=== PATIENT | female | born 1990 | race Caucasian/White ===

== ENCOUNTER 2017-06-10 00:56 | Inpatient (IN) | payer MEDICAID ==
[~2017-06-10] VITALS: Ht 162.6 cm; Wt 68.2 kg
[2017-06-10 02:51] LABS: RED CELL DISTRIBUTION WIDTH 13.5 % (11.5-14.5)
[2017-06-10 02:55] LABS: CALCIUM 8.9 mg/dL (8.5-10.1); CARBON DIOXIDE 22.8 mmol/L (21-32); CHLORIDE SERUM 102 mmol/L (98-107); CREATININE SERUM 0.7 mg/dL (0.6-1.0); GFR1 > 60 mL/min; GLUCOSE SERUM 87 mg/dL (74-106); PLATELET COUNT 372 x10^3mcL (130-400); POTASSIUM SERUM 3.7 mmol/L (3.5-5.1); SODIUM SERUM 137 mmol/L (136-145)
[2017-06-10 03:00] LABS: ALBUMIN 3.3 g/dL (3.4-5.0); ALKALINE PHOSPHATASE 109 U/L (46-116); ALT/SGPT 22 U/L (14-59); AST/SGOT 17 U/L (15-37); BILIRUBIN TOTAL 0.24 mg/dL (0.20-1.00); TOTAL PROTEIN, SERUM 8.1 g/dL (6.4-8.2)
[2017-06-10 04:00] LABS: BAND NEUTROPHIL 2 % (0-10); MONOCYTE 5 % (0-7); PLATELET MORPHOLOGY LARGE PLATELET SEEN; SEGMENTED NEUTROPHILS 83 % (37-75); rbc morphology (normal/abnorm) NORMAL (NORMAL)
[2017-06-10 04:08] LABS: MAGNESIUM 1.9 mg/dL (1.8-2.4); PHOSPHOROUS 3.4 mg/dL (2.5-4.9)
[2017-06-10 04:09] LABS: CHOLESTEROL/HDL RATIO 2.2
[2017-06-10 04:12] LABS: T3 TOTAL 1.12 ng/mL
[2017-06-10 04:19] VITALS: BP 133/74
[2017-06-10 04:28] LABS: FREE T4 1.42 ng/dL (0.76-1.46); FREE THYROXINE INDEX 3.5 ug/dL (1.4-4.5)
[2017-06-10 05:45] VITALS: BP 116/62
[2017-06-10 08:58] VITALS: BP 108/54
[2017-06-10 13:06] VITALS: BP 103/43
[2017-06-10 13:14] LABS: UA SPECIFIC GRAVITY >=1.030 (1.005-1.035); microscopic required? YES; urine erythrocyte NEGATIVE (NEGATIVE)
[2017-06-10 13:35] LABS: AMPHETAMINE QUAL UR POSITIVE (NEG <=1000)
[2017-06-10 17:04] VITALS: BP 116/68
[2017-06-10 21:12] VITALS: BP 121/64
[2017-06-11 05:53] VITALS: BP 107/60
[2017-06-11 06:23] LABS: PLATELET COUNT 398 x10^3mcL (130-400); RED CELL DISTRIBUTION WIDTH 13.7 % (11.5-14.5)
[2017-06-11 06:25] LABS: CALCIUM 8.8 mg/dL (8.5-10.1); CARBON DIOXIDE 20.3 mmol/L (21-32); CHLORIDE SERUM 106 mmol/L (98-107); CREATININE SERUM 0.7 mg/dL (0.6-1.0); GFR1 > 60 mL/min; GLUCOSE SERUM 182 mg/dL (74-106); POTASSIUM SERUM 4.2 mmol/L (3.5-5.1); SODIUM SERUM 137 mmol/L (136-145)
[2017-06-11 09:13] VITALS: BP 120/60
[2017-06-11 10:45] LABS: BAND NEUTROPHIL 2 % (0-10); BASOPHIL 0 % (0-2); MONOCYTE 1 % (0-7); PLATELET MORPHOLOGY PLATELETS INCREASED; SEGMENTED NEUTROPHILS 97 % (37-75); rbc morphology (normal/abnorm) NORMAL (NORMAL)
[2017-06-11 17:44] VITALS: BP 107/47
[2017-06-11 20:20] VITALS: BP 109/68
[2017-06-12 05:13] VITALS: BP 112/59
[2017-06-12 06:41] LABS: BASOPHIL % 0.5 % (0-2); PLATELET COUNT 361 x10^3mcL (130-400); RED CELL DISTRIBUTION WIDTH 13.4 % (11.5-14.5)
[2017-06-12 06:48] LABS: CALCIUM 8.1 mg/dL (8.5-10.1); CARBON DIOXIDE 22.8 mmol/L (21-32); CHLORIDE SERUM 109 mmol/L (98-107); CREATININE SERUM 0.8 mg/dL (0.6-1.0); GFR1 > 60 mL/min; GLUCOSE SERUM 154 mg/dL (74-106); POTASSIUM SERUM 3.1 mmol/L (3.5-5.1); SODIUM SERUM 144 mmol/L (136-145)
[2017-06-12 09:26] VITALS: Ht 162.6 cm; Wt 68.2 kg
[2017-06-12 10:07] VITALS: BP 116/65
[2017-06-12] MEDS ORDERED: CLEOCIN HCL300 MG PO (15:56)
[2017-06-12] MEDS ORDERED: QUETIAPINE FUMA25 M1 PO (15:57)
[2017-06-12] MEDS ORDERED: THERA TABS1 TAB PO (15:57)
[2017-06-12] MEDS ORDERED: LIO10 PO (16:10)
[2017-06-12] MEDS ORDERED: LORAZEPAM0.5 MG PO (16:15)
[2017-06-12 16:38] LABS: BASOPHIL % 0.5 % (0-2)
[2017-06-12 16:40] LABS: PLATELET COUNT 373 x10^3mcL (130-400); RED CELL DISTRIBUTION WIDTH 13.5 % (11.5-14.5)
[2017-06-12 17:38] VITALS: BP 102/60
[2017-06-12 18:21] VITALS: BP 102/60
== END 2017-06-12 18:49 | disposition home or self-care (01) | DRG 720 ==
LOC: ED 00:56 → DU 02:47 → MU 02:47 → DU 03:48 → MU 13:01
PROVIDERS: Family Medicine; Specialist
DX: A41.9 Sepsis, unspecified organism (principal); N17.0 Acute kidney failure with tubular necrosis; E44.1 Mild protein-calorie malnutrition; F15.10 Other stimulant abuse, uncomplicated; L03.114 Cellulitis of left upper limb; L03.113 Cellulitis of right upper limb; F17.210 Nicotine dependence, cigarettes, uncomplicated; Z68.24 Body mass index [BMI] 24.0-24.9, adult; Z91.19 Patient's noncompliance with other medical treatment and regimen; F12.90 Cannabis use, unspecified, uncomplicated; G89.29 Other chronic pain; M54.89 Other dorsalgia; E87.6 Hypokalemia; I08.3 Combined rheumatic disorders of mitral, aortic and tricuspid valves
CPT/HCPCS: 83880; 84439; J1100; J1885; J2405; J2543; J2550; J3010; J3490; J7030; Q0092